=== PATIENT | male | born 1985 | race Caucasian/White ===

== ENCOUNTER 2016-12-29 04:04 | Emergency (ER) | payer OTHER ==
[2016-12-29] VITALS (7 sets, daily range): BP systolic 112–228; BP diastolic 62–124; PULSE 68–127; RESP 16–22; TEMP 98.2; O2SAT 98–100
[~2016-12-29 04:04] MED LIST: AMOX875T PO; BACT800T5 PO
[2016-12-29 05:01] LABS: AUTOMATED NEUTROPHIL # 6.1 TH/MM3 (1.8-7.7); BASOPHIL % 0.6 % (0.0-2.0); EOSINOPHIL # 0.2 TH/MM3 (0-0.4); EOSINOPHIL % 2.3 % (0.0-4.0); HEMATOCRIT 36.7 % (39.0-51.0); HEMO FLAGS DIFF FINAL; LYMPH % 18.5 % (9.0-44.0); LYMPHOCYTE # 1.6 TH/MM3 (1.0-4.8); MEAN CELL VOLUME 84.1 FL (80.0-100.0); MEAN CORPUSCULAR HGB CONC 34.5 % (32.0-36.0); MONO % 9.3 % (0.0-8.0); NEUT % 69.3 % (16.0-70.0); PLATELET COUNT 257 TH/MM3 (150-450); RED BLOOD COUNT 4.37 MIL/MM3 (4.50-5.90); RED CELL DISTRIBUTION WIDTH 14.3 % (11.6-17.2); WHITE BLOOD COUNT 8.8 TH/MM3 (4.0-11.0)
[2016-12-29 05:25] LABS: ANION GAP 11 MEQ/L (5-15)
[2016-12-29 05:28] LABS: ACETAMINOPHEN LESS THAN 2.0 MCG/ML (10.0-30.0); ALKALINE PHOSPHATASE 69 U/L (45-117); ALT (GPT) 31 U/L (12-78); AST (GOT) 29 U/L (15-37); BICARBONATE 24.3 MEQ/L (21.0-32.0); BLOOD UREA NITROGEN 29 MG/DL (7-18); CHLORIDE 102 MEQ/L (98-107); GLOMERULAR FILTRATION RATE 68 ML/MIN (>89); POTASSIUM 3.4 MEQ/L (3.5-5.1); SODIUM (NA) 137 MEQ/L (136-145); TOTAL BILIRUBIN ADULT 0.4 MG/DL (0.2-1.0)
--- NOTE | 2016-12-29 05:44 | PD ---
HPI Chief Complaint: Psychiatric Symptoms Time Seen by Provider: 04:31 Travel History International Travel<30 days: No Contact w/Intl Traveler<30days: No Traveled to known affect area: No History of Present Illness HPI The patient is a 31 year old male who presents to the [facility] emergency department with a history of being Otto acted prior to arrival. According to the officer that brought the patient in a long with ambulance services the patient had reportedly been using Renata and methamphetamines this evening. He then began to run through his house naked screaming at people were trying to kill him. The patient reportedly lives with his parents. According to the Otto act, the patient was considered to be a harm to himself as he did not appear to be able to care for himself. The patient on arrival is paranoid, agitated, repeatedly checking under the bed and behind a bed for people that may "kill him". The patient according to the record has been Otto acted in the past.The patient denies any suicidal or homicidal ideations. The patient reports that he is not agitated. He reports that he is just more aware of his surroundings given his methamphetamine use. The patient denies any recent fevers, cough, congestion, neck pain, chest pain, shortness of breath, abdominal pain, vomiting, diarrhea, urinary symptoms, or other neurologic symptoms. [facility] Past Medical History Narrative Medical The patient's past medical history is significant for methamphetamine use, according to the record bipolar disorder, and asthma. Blood Disorders: No Bipolar Disorder: Yes Respiratory: Yes (asthma) Schizophrenia: Yes ?: Not Past Surgical History Narrative Surgical The patient's past surgical history is significant for eye surgery. Eye Surgery: Yes Other Surgery: Yes (INGUINAL HERNIA REPAIR) Social History Alcohol Use: No Tobacco Use: No Substance Use: Yes (FLAKKA AND METH ) Allergies-Medications (Allergen,Severity, Reaction): Coded Allergies: Codeine (Verified Allergy, Severe, Rash, 07/14/16) *MDRO Multi-Drug Resistant Organism (Verified Adverse Reaction, Unknown, 07/14/16) MRSA PCR (nares) positive 03/10/2015 Reported Meds & Prescriptions Reported Meds & Active Scripts Active Review of Systems Except as stated in HPI: all other systems reviewed are Neg General / Constitutional: No: Fever Eyes: No: Visual changes HENT: No: Headaches Cardiovascular: No: Chest Pain or Discomfort Respiratory: No: Shortness of Breath Gastrointestinal: No: Abdominal Pain Genitourinary: No: Dysuria Musculoskeletal: No: Pain Skin: No Rash Neurologic: No: Weakness Psychiatric: Positive: Anxiety, Disorder of Thought, Substance Abuse, No: Depression, Suicidal Ideations, Homicidal Ideation Endocrine: No: Polydipsia Hematologic/Lymphatic: No: Easy Bruising Physical Exam Narrative General: The patient is a well-developed well-nourished male, agitated on arrival, eyes starting around the room. The patient has pressured speech. Head and Neck exam: Head is normocephalic atraumatic. Eyes: EOMI, pupils are equal round and reactive to light. Nose: Midline septum with pink mucous membranes Mouth: Dentition unremarkable. Moist mucus membranes. Posterior oropharynx is not erythematous. No tonsillar hypertrophy. Uvula midline. Airway patent. Neck: No palpable lymphadenopathy. No nuchal rigidity. No thyromegaly. Cardiovascular: Sinus tachycardia with a rate in the 120s without murmurs, gallops, or rubs. No pulse deficit to the extremities on simultaneous auscultation and palpation of his radial artery. Lungs: Clear to auscultation bilaterally. No wheezes, rhonchi, or rales. Abdomen: Soft, without tenderness to palpation in all 4 quadrants of the abdomen. No guarding, rebound, or rigidity. Normal bowel sounds are audible. No tenderness on palpation of McBurney's point. Extremities: No clubbing, cyanosis, or edema. 2+ pulses in all 4 extremities. No calf tenderness on palpation. Back: No spinous process tenderness to palpation. No costovertebral angle tenderness to palpation. Neurologic Exam: Grossly nonfocal. Skin Exam: No rash noted. Intact skin that is warm and dry. Data Data Last Documented VS Vital Signs Date Time Temp Pulse Resp B/P Pulse Ox O2 Delivery O2 Flow Rate FiO2 12/29/16 05:30 117 18 163/100 99 Room Air 12/29/16 04:25 98.2 Orders Complete Blood Count With Diff (12/29/16 04:31) Comprehensive Metabolic Panel (12/29/16 04:31) Urinalysis - C+S If Indicated (12/29/16 04:31) Psych Screen (12/29/16 04:31) Drug Screen, Random Urine (12/29/16 04:31) Alcohol (Ethanol) (12/29/16 04:31) Salicylates (Aspirin) (12/29/16 04:31) Tylenol (Acetaminophen) (12/29/16 04:31) Labs Laboratory Tests Test 12/29/16 04:30 White Blood Count 8.8 TH/MM3 Red Blood Count 4.37 MIL/MM3 Hemoglobin 12.7 GM/DL Hematocrit 36.7 % Mean Corpuscular Volume 84.1 FL Mean Corpuscular Hemoglobin 29.0 PG Mean Corpuscular Hemoglobin 34.5 % Concent Red Cell Distribution Width 14.3 % Platelet Count 257 TH/MM3 Mean Platelet Volume 9.2 FL Neutrophils (%) (Auto) 69.3 % Lymphocytes (%) (Auto) 18.5 % Monocytes (%) (Auto) 9.3 % Eosinophils (%) (Auto) 2.3 % Basophils (%) (Auto) 0.6 % Neutrophils # (Auto) 6.1 TH/MM3 Lymphocytes # (Auto) 1.6 TH/MM3 Monocytes # (Auto) 0.8 TH/MM3 Eosinophils # (Auto) 0.2 TH/MM3 Basophils # (Auto) 0.0 TH/MM3 CBC Comment DIFF FINAL Differential Comment Sodium Level 137 MEQ/L Potassium Level 3.4 MEQ/L Chloride Level 102 MEQ/L Carbon Dioxide Level 24.3 MEQ/L Anion Gap 11 MEQ/L Blood Urea Nitrogen 29 MG/DL Creatinine 1.26 MG/DL Estimat Glomerular Filtration 68 ML/MIN Rate Random Glucose 121 MG/DL Calcium Level 8.6 MG/DL Total Bilirubin 0.4 MG/DL Aspartate Amino Transf 29 U/L (AST/SGOT) Alanine Aminotransferase 31 U/L (ALT/SGPT) Alkaline Phosphatase 69 U/L Total Protein 8.0 GM/DL Albumin 3.8 GM/DL Salicylates Level LESS THAN 1.7 MG/DL Acetaminophen Level LESS THAN 2.0 MCG/ML Ethyl Alcohol Level LESS THAN 3 MG/DL MDM Medical Decision Making Medical Screen Exam Complete: Yes Emergency Medical Condition: Yes Medical Record Reviewed: Yes Differential Diagnosis Substance-induced mood disorder, versus acute psychosis related to dave Narrative Course During the course of the patients emergency department visit, the patients history, examination, and differential diagnosis were reviewed with the patient. The patient had IV access obtained and blood work sent for analysis. The patient was placed on a monitoring specialist with oximetry and blood pressure monitoring. The patient's Otto act was reviewed. A psychiatric screen was ordered. The patient was provided by mouth hydration. The patients laboratory studies were reviewed and remarkable for a white count of 8.8, hemoglobin 12.7, platelets 257 with 9.3 monocytes, CMP is remarkable for a potassium of 3.4, BUN 29, glucose 121, mild hypokalemia will be improved with by mouth hydration with Gatorade. Acetaminophen less than 2, salicylate less than 1.7, alcohol less than 3. The patient has been medically cleared for evaluation by the psychiatrist and psychiatric screener under a Otto act. Diagnosis Primary Impression: Paranoid delusion Additional Impression: Agitation Farideh Alvarado MD December 29, 2016 05:44
[2016-12-29 06:13] LABS: BLOOD, URINE MOD (NEG); COMMENT (UR) CULT NOT INDICATED; CULTURE IF INDICATED CULT NOT INDICATED; GLUCOSE,URINE NEG (NEG); KETONE, URINE NEG (NEG); NITRITE,URINE NEG (NEG); PH, URINE 5.5 (5.0-8.5); SQUAMOUS EPITHELIAL CELL URINE <1 /hpf (0-5); URINE COLOR YELLOW (YELLW/STRAW)
[2016-12-29 06:16] LABS: AMPHETAMINE, URINE POS (NEG); BARBITURATES, URINE NEG (NEG); COCAINE, URINE POS (NEG)
[2016-12-29] MEDS ORDERED: LORazepam 2 MG/ML VIAL IM ONE ×3 (06:45→22:45)
[2016-12-30 02:00] VITALS: RESP 18
[2016-12-30 06:16] VITALS: BP 114/83; PULSE 73; RESP 18; O2SAT 98
[2016-12-30 09:55] VITALS: BP 114/83; PULSE 73; RESP 18; O2SAT 98
--- NOTE | 2016-12-30 10:03 | PD ---
History of Present Illness Chief Complaint: Psychiatric Symptoms Time Seen by Provider: 09:45 Travel History International Travel<30 Days: No Contact w/Intl Traveler<30days: No Known affected area: No Legal Status Legal Status: Otto Act Otto Act Signed By: Charisse Otto Act Comment: EDILMA Maloney History of Present Illness: History of Present Illness HPI The patient is a 31 year old male with history of substance abuse who presents to the [facility] emergency department under a Fam. According to the BA report the patient had reportedly been using Renata and methamphetamines this evening and was running through his house naked screaming that people were trying to kill him. The patient on arrival is paranoid, agitated, repeatedly checking under the bed and behind a bed for people that may "kill him". The patient was monitored in J pod. he was restless and inappropriate at times. Current toxicology is positive for amphetamine as well as for cocaine. This morning the patient is alert, oriented. He is requesting discharge. Does not exhibit any psychosis and no dave. There is no suicidal or homicidal ideation, intent or plan. he states " I am not crazy and I donot want to hurt myself or anyone else. I do drugs and I called the weigh machine operator myself". PFSH Past Medical History Blood Disorders: No Bipolar Disorder: Yes Respiratory: Yes (asthma) Schizophrenia: Yes ?: Not Past Surgical History Eye Surgery: Yes Other Surgery: Yes (INGUINAL HERNIA REPAIR) Psychiatric History Psychiatric History Hx Psychiatric Treatment: Hx of substance abuse as well as substrance induiced mood disorder and psychosis. History of Inpatient Treatment: Yes Guns or firearms in home: No Social History Single male. lives with his mother. Hx Alcohol Use: No Hx Tobacco Use: No Hx Substance Use: Yes (meth daily; flakka occasionally--last used last night, marajuana once/mo.) Substance Use Type: Marijuana, Amphetamines-Stimulants, Cocaine, Other Other Substances Used: Flakka Hx of Substance Use Treatment: Yes Family Psychiatric History Negative Allergies-Medications (Allergen,Severity, Reaction): Coded Allergies: Codeine (Verified Allergy, Severe, Rash, 07/14/16) *MDRO Multi-Drug Resistant Organism (Verified Adverse Reaction, Unknown, 07/14/16) MRSA PCR (nares) positive 03/10/2015 Reported Meds & Prescriptions Reported Meds & Active Scripts Active Review of Systems Except as stated in HPI: all other systems reviewed are Neg Exam Alert: Yes [place]: Person (ox4) Mood: Calm Affect: Appropriate Speech: Clear, Logical Eye Contact: Normal Memory Intact: Comment (no impairmetn) Hallucinations: Other (neagtive) Delusions: No Suicidal: Ideation (deneis any) Homicidal: Ideation (deneis any.) Insight/Judgement Poor. Poor. [facility] Medical Decision Making Assessment/Plan 31 year old male with history of substance use disorder under a BA after he called the police while under the influence of Flakka, cocaine, amphetamines. The patient at this time is requesting discharge and presents no criteria to remain against his will. There is no psychosis and no dave. There is no sucidalor homicdalideation, intent or plan. He refuses referral to substance abuse treatment facility at [facility] time. Lift BA. 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
== END 2016-12-30 11:02 | disposition home or self-care (01) ==
LOC: NEPC 04:04 → NEPJ 12-30 11:02
DX: F19.151 Other psychoactive substance abuse with psychoactive substance-induced psychotic disorder with hallucinations (principal)
CPT/HCPCS: 80053; 80307; 81001; 85025; 96372; 99284; J2060

== ENCOUNTER 2017-05-09 03:58 | Emergency (ER) | payer SELFPAY ==
[2017-05-09 04:00] VITALS: BP 169/91; PULSE 124; RESP 20; TEMP 97.9; O2SAT 97
== END 2017-05-09 04:45 | disposition left against medical advice (07) ==
LOC: NED 03:58
DX: Z03.89 Encounter for observation for other suspected diseases and conditions ruled out (principal)
CPT/HCPCS: 99281

== ENCOUNTER 2017-07-22 14:16 | Emergency (ER) | payer SELFPAY ==
[~2017-07-22] VITALS: Ht 180.3 cm; Wt 112.0 kg
[2017-07-22 14:22] VITALS: BP 147/90; PULSE 120; RESP 18; TEMP 98.8; O2SAT 96
[2017-07-22] MEDS ORDERED: IBUP1TAB7 PO (14:59)
[2017-07-22] MEDS ORDERED: CEPH-460 PO (14:59)
[2017-07-22] MEDS ORDERED: BACT800T5 PO (14:59)
--- NOTE | 2017-07-22 14:59 | PD ---
HPI Chief Complaint: Skin Problem Time Seen by Provider: 14:55 Travel History International Travel<30 days: No Contact w/Intl Traveler<30days: No Traveled to known affect area: No History of Present Illness HPI 32-year-old male with bipolar, schizophrenia, presents to emergency department for evaluation of what he believes may be a spider bite on the posterior aspect of his right distal lower extremity. Patient states he saw a small area 5 days ago and thought he had been bitten by something. He states that has increased in size and become very tender of the last 2-3 days. He came in today because his right distal lower extremity is erythematous and he feels that the area is getting larger. Full, he rates it a 6 out of 10. It is constant and throbbing. He squeezed the area and had a large amount of yellow drainage from it. He has had no fever or chills. Denies IV drug abuse but states he does use Flor and spice. He used meth prior to arrival. PFSH Past Medical History Blood Disorders: No Bipolar Disorder: Yes Respiratory: Yes (asthma) Schizophrenia: Yes Past Surgical History Eye Surgery: Yes Other Surgery: Yes (INGUINAL HERNIA REPAIR) Social History Alcohol Use: No Tobacco Use: No Substance Use: Yes (meth daily; flakka occasionally--last used last night, marajuana once/mo.) Allergies-Medications (Allergen,Severity, Reaction): Coded Allergies: codeine (Unverified Allergy, Severe, Rash, 03/17/17) *MDRO Multi-Drug Resistant Organism (Verified Adverse Reaction, Unknown, 07/14/16) MRSA PCR (nares) positive 03/10/2015 Reported Meds & Prescriptions Reported Meds & Active Scripts Active Ibuprofen 800 Mg Tab 800 Mg PO Q8H PRN Keflex (Cephalexin) 500 Mg Cap 500 Mg PO Q6H Bactrim DS (Sulfamethoxazole-Trimethoprim) 800-160 Mg Tab 1 Tab PO BID Review of Systems Except as stated in HPI: all other systems reviewed are Neg Physical Exam Narrative GENERAL: Well-nourished male patient, with bizarre affect, but in no acute distress. SKIN: Focused skin assessment warm/dry. Right centimeter in diameter area of induration with a central opening of 1 cm on the posterior aspect of the right distal lower extremity. This is surrounded by 15 cm x 30 cm area of erythema. This area is marked for monitoring. There is no inguinal lymphadenopathy. There is no red streaking HEAD: Atraumatic. Normocephalic. EYES: Pupils equal and round. No scleral icterus. No injection or drainage. ENT: No nasal bleeding or discharge. Mucous membranes pink and moist. NECK: Trachea midline. No JVD. CARDIOVASCULAR: Tachycardic rate and rhythm. No murmur appreciated. RESPIRATORY: No accessory muscle use. Clear to auscultation. Breath sounds equal bilaterally. GASTROINTESTINAL: Abdomen soft, non-tender, nondistended. Hepatic and splenic margins not palpable. MUSCULOSKELETAL: No obvious deformities. No clubbing. No cyanosis. No edema. NEUROLOGICAL: Awake and alert. No obvious cranial nerve deficits. Motor grossly within normal limits. Normal speech. Data Data Last Documented VS Vital Signs Date Time Temp Pulse Resp B/P (MAP) Pulse Ox O2 Delivery O2 Flow Rate FiO2 07/22/17 15:12 07/22/17 14:22 98.8 120 18 96 Room Air Orders Orders Sulfamet-Trimeth Ds 800-160 Mg (Bactrim (07/22/17 15:00) Cephalexin (Keflex) (07/22/17 15:00) Acetamin-Hydrocod 325-5 Mg (Odell 5-325 (07/22/17 15:00) Wound Care (07/22/17 15:00) Ed Discharge Order (07/22/17 15:00) Wound Culture And Gram Stain (07/22/17 16:17) [facility] Medical Decision Making Medical Screen Exam Complete: Yes Emergency Medical Condition: Yes Medical Record Reviewed: Yes Differential Diagnosis Abscess versus cellulitis versus folliculitis versus insect bite Narrative Course 32-year-old male presents to emergency department for evaluation of what he believes is a spider bite to the right distal lower extremity. Patient has an area consistent with abscess surrounded by significant area of cellulitis. There is no streaking or lymphadenopathy associated with this. I&D is complete. Patient is given his first dose of oral antibiotic here and will be started on oral antibiotics outpatient. His tachycardia is likely due to recent admitted meth use. He is counseled on care and agrees to return immediately with any acute worsening of symptoms. Procedures Procedure Narrative INCISION AND DRAINAGE OF ABSCESS: The area was prepped and was sterilely draped. Topical ethyl chloride was used to anesthetize the area. The area was properly anesthetized. A number 11 scalpel was used to make a 1-cm incision across the area of the abscess. Cultures were obtained. The abscess was drained an irrigated with normal saline. Quarter inch iodoform packing was placed in the wound. Sterile dressing applied. Patient advised to have packing removed in two days. Diagnosis Primary Impression: Cellulitis and abscess of right lower extremity Referrals: Primary Care Physician Patient Instructions: Abscess Incision and Drainage (DC), General Instructions Additional Instructions: Elevate the affected extremity Keep the area clean Follow-up with a primary care provider Start your antibiotic today and take it until it is all gone Return immediately to the emergency department with any acute worsening symptoms Med/Other Pt SpecificInfo: Prescription(s) given Scripts Ibuprofen (Ibuprofen) 800 Mg Tab 800 MG PO Q8H Y for Pain/Inflammation, #30 TAB 0 Refills Prov: Teena Paula 07/22/17 Cephalexin (Keflex) 500 Mg Cap 500 MG PO Q6H for Infection, #5 CAP 0 Refills Prov: Teena Paula 07/22/17 Sulfamethoxazole-Trimethoprim (Bactrim DS) 800-160 Mg Tab 1 TAB PO BID for Infection, #20 TAB 0 Refills Prov: Teena Paula 07/22/17 Disposition: 01 DISCHARGE HOME Condition: Stable Teena Paula Jul 22, 2017 14:59
[2017-07-22] MEDS ORDERED: ACETAMINOPHEN/HYDROcodone 325 MG/5 MG TAB PO ONE (15:00)
[2017-07-22] MEDS ORDERED: CEPHALEXIN MONOHYDRATE 500 MG CAP PO ONE (15:00)
[2017-07-22] MEDS ORDERED: SULFAMETHOXAZOLE-TRIMETHOPRIM DS 800-160 MG TAB PO ONE (15:00)
== END 2017-07-22 15:57 | disposition home or self-care (01) ==
LOC: NEPD 14:16
DX: L03.115 Cellulitis of right lower limb (principal); L02.415 Cutaneous abscess of right lower limb; F31.9 Bipolar disorder, unspecified; F20.9 Schizophrenia, unspecified; J45.909 Unspecified asthma, uncomplicated; F15.90 Other stimulant use, unspecified, uncomplicated; F12.90 Cannabis use, unspecified, uncomplicated; Z88.5 Allergy status to narcotic agent
CPT/HCPCS: 10060; 86403; 87070; 87186; 87205